=== PATIENT | male | born 1935 | race Two or more races ===

== ENCOUNTER 2022-11-01 09:01 | Emergency (ER) | payer OTHER ==
[~2022-11-01] VITALS: Ht 175.3 cm; Wt 95.3 kg
[2022-11-01] MEDS ORDERED: ADULT LOW DOSE81 M1 (09:14)
[2022-11-01] MEDS ORDERED: GLUMETZA500 MG (09:14)
[2022-11-01] MEDS ORDERED: SIMVASTATIN5 MG (09:14)
[2022-11-01] MEDS ORDERED: TOPROL XL25 M1 (09:14)
[2022-11-01] MEDS ORDERED: JANUMET 50-1,01 EACH (09:14)
== END 2022-11-01 12:41 | disposition home or self-care (01) ==
LOC: ER 09:01
DX: U07.1 COVID-19 (principal); E78.00 Pure hypercholesterolemia, unspecified; I10 Essential (primary) hypertension; E11.9 Type 2 diabetes mellitus without complications